=== PATIENT | female | born 1985 | race Caucasian/White ===

== ENCOUNTER 2016-12-25 11:53 | Emergency (ER) | payer MEDICAID ==
--- NOTE | 2016-12-25 12:21 | ER Document Report ---
ED Medical Screen (RME) - General Stated Complaint: EAR PAIN Notes: patient is a 31 year old female c/o left ear pain, sinus congestion, jaw and ear pain yesterday in the shower she used peroxide and water to irrigate her ear, she then noticed clear and dark drainage never had ear infection before I have greeted and performed a rapid initial assessment of this patient. A comprehensive ED assessment and evaluation of the patient, analysis of test results and completion of the medical decision making process will be conducted by additional ED providers. Physical Exam - Vital signs Vitals: Temp Pulse Resp BP Pulse Ox 98.1 F 99 16 119/75 96 12/25/16 12:17 12/25/16 12:17 12/25/16 12:17 12/25/16 12:17 12/25/16 12:17 Course - Vital Signs Vital signs: Temp Pulse Resp BP Pulse Ox 98.1 F 99 16 119/75 96 12/25/16 12:17 12/25/16 12:17 12/25/16 12:17 12/25/16 12:17 12/25/16 12:17
--- NOTE | 2016-12-25 13:56 | ER Document Report ---
Addendum entered and electronically signed by MORALES RAMÍREZ NP 12/26/16 13:03 : Course - Re-evaluation Re-evalutation: 12/26/16 13:01 [facility] pharmacy, February, on phone. Reports patient cannot afford prescription for prescribed ear drops-floxin, her insurance does not cover it. Request to switch it to Cipro HC. Reviewed chart and agreed to switch. - Vital Signs Vital signs: Temp Pulse Resp BP Pulse Ox 98 F 80 16 120/68 98 12/25/16 14:25 12/25/16 14:25 12/25/16 14:25 12/25/16 14:25 12/25/16 14:25 Original Note: ED ENT - General Chief Complaint: Ear Pain Stated Complaint: EAR PAIN Time seen by provider: 13:56 Mode of Arrival: Ambulatory Information source: Patient TRAVEL OUTSIDE OF THE [place] IN LAST 30 DAYS: No - HPI Patient complains to provider of: Ear problem - Left Quality of pain: Achy Severity: Moderate Context: Recent Illness Location of pain: Ears - Left Associated symptoms: Chills, Congestion, Cough, Ear pain, Ear drainage. denies : Ear trauma, Face swelling, Jaw pain, Jaw swelling, Motion sickness, Neck pain , Nose bleed, Stiff neck Notes: Patient arrives with complaints of left ear pain. She states that she was diagnosed with influenza on Thursday and is currently on Tamiflu. States that she felt a pop in her left ear and since that time she's been having clear as well as bloody drainage from the left ear. She now has pain in the left ear that is worse with touching her ear. She denies any fevers. She denies any numbness tingling or weakness. She states that she vomited one time this morning, but has had no vomiting since that time. She denies any abdominal pain. She denies any blurred or loss vision. No numbness tingling or weakness. She has no other complaints at this time. - Related Data Allergies/Adverse Reactions: No Known Allergies Allergy (Unverified 12/25/16 12:19) Past Medical History - Social History Smoking Status: Never Smoker Chew tobacco use (# tins/day): No Frequency of alcohol use: None Drug Abuse: None Family History: Reviewed & Not Pertinent Patient has suicidal ideation: No Patient has homicidal ideation: No Renal/ Medical History: Denies: Hx Peritoneal Dialysis Review of Systems - Review of Systems -: Yes All other systems reviewed and negative Physical Exam - Vital signs Vitals: Temp Pulse Resp BP Pulse Ox 98.1 F 99 16 119/75 96 12/25/16 12:17 12/25/16 12:17 12/25/16 12:17 12/25/16 12:17 12/25/16 12:17 Interpretation: Normal - General General appearance: Appears well, Alert - HEENT Head: Normocephalic, Atraumatic Eyes: Normal Pupils: PERRL Ears: Tragus tenderness, Other - No redness, tenderness, swelling to the mastoid External canal: Erythema, Swollen, Other - Purulent drainage Tympanic membrane: Injected, Perforation, Purulent effusion Nasal: Clear rhinorrhea Mouth/Lips: Normal Pharynx: Normal. No: Erythema, Exudate, Uvular edema Neck: Normal. No: Meningismus - Respiratory Respiratory status: No respiratory distress Chest status: Nontender Breath sounds: Normal Chest palpation: Normal - Cardiovascular Rhythm: Regular Heart sounds: Normal auscultation Murmur: No - Extremities General upper extremity: Normal inspection, Nontender, Normal color, Normal ROM , Normal temperature General lower extremity: Normal inspection, Nontender, Normal color, Normal ROM , Normal temperature, Normal weight bearing. No: Osvaldo's sign - Neurological Neuro grossly intact: Yes Cognition: Normal Orientation: AAOx4 [place] Coma Scale Eye Opening: Spontaneous [place] Coma Scale Verbal: Oriented [place] Coma Scale Motor: Obeys Commands [place] Coma Scale Total: 15 Speech: Normal Motor strength normal: LUE, RUE, LLE, RLE Sensory: Normal - Psychological Associated symptoms: Normal affect, Normal mood - Skin Skin Temperature: Warm Skin Moisture: Dry Skin Color: Normal Course - Re-evaluation Re-evalutation: 12/25/16 14:06 Patient is nontoxic appearing with stable vitals. The patient has appears to be a left otitis media with perforated tympanic membrane as well as otitis externa. She has no signs of mastoiditis. Patient will be discharged home on amoxicillin as well as Floxin optic. Follow up if not better in 2-3 days, sooner for increased pain, signs of mastoiditis, or any further concerns. - Vital Signs Vital signs: Temp Pulse Resp BP Pulse Ox 98.1 F 99 16 119/75 96 02/09/17 12:17 12/25/16 12:17 12/25/16 12:17 12/25/16 12:17 12/25/16 12:17 Discharge - Discharge Clinical Impression: Otitis media, acute with perforation of eardrum Qualifiers: Laterality: left Recurrence: not specified as recurrent Qualified Code(s): H66.012 - Acute suppurative otitis media with spontaneous rupture of ear drum, left ear Otitis externa Qualifiers: Otitis externa type: other infective Laterality: left Chronicity: acute Qualified Code(s): H60.392 - Other infective otitis externa, left ear Condition: Stable Disposition: HOME, SELF-CARE Instructions: Otitis Externa ([facility]), Otitis Media ([facility]) Additional Instructions: Take medications as prescribed. Alternate between Tylenol and Motrin as needed for pain. Follow-up with not improving in the next 2-3 days, sooner for increased pain, high fever, redness or swelling to the outside or backside of the ear. Follow-up sooner for any further concerns. Prescriptions: Amoxicillin 875 mg PO BID #20 tablet Ofloxacin [Floxin] 10 drop OT DAILY #1 bottle
[2016-12-25 14:25] VITALS: BP 120/68
== END 2016-12-25 14:27 | disposition home or self-care (01) ==
LOC: ER 11:53
DX: H66.012 Acute suppurative otitis media with spontaneous rupture of ear drum, left ear (principal); H60.392 Other infective otitis externa, left ear; H92.02 Otalgia, left ear
CPT/HCPCS: 99282